=== PATIENT | female | born 1980 | race Caucasian/White ===

== ENCOUNTER 2021-08-04 10:17 | Inpatient (IN) | payer OTHER ==
[~2021-08-04] VITALS: Ht 162.6 cm; Wt 105.7 kg
[~2021-08-04 10:17] MED LIST: MEDROL DOSEPAK 24 MG PO
[2021-08-04 11:12] LABS: HEMOGLOBIN 11.1 gm/dl (12.3-15.3); RED BLOOD COUNT 4.4 M/UL (4.00-5.10); WHITE BLOOD COUNT 21.9 K/UL (4.5-11.0)
[2021-08-04] MEDS ORDERED: AMITRIPTYLINE100 MG PO (13:53)
[2021-08-04] MEDS ORDERED: VOLTAREN EC 7575 MG PO (13:53)
[2021-08-04] MEDS ORDERED: GLIPIZIDE5 MG PO (13:53)
[2021-08-04] MEDS ORDERED: EUTHYROX75 MCG PO (13:54)
[2021-08-04] MEDS ORDERED: MYCOSTATIN100000 UTS PO (13:55)
[2021-08-04] MEDS ORDERED: PROAIR HFA8.5 GM INH (13:55)
[2021-08-04] MEDS ORDERED: HUMALOG MI100 UNIT/3 SC (13:56)
[2021-08-04] MEDS ORDERED: BASAGLAR K100 UNIT/1 SC (14:48)
[2021-08-04] MEDS ORDERED: VITAMIN C 500500 MG PO (14:49)
[2021-08-04] MEDS ORDERED: ZINC50 M3 PO (14:49)
[2021-08-04] MEDS ORDERED: BIOTIN1 MG PO (14:49)
--- NOTE | 2021-08-04 15:04 | NUR ---
Attempted midline catheter placement x 3 times, without success. Dr. Wing notified. Able to access vein each time, but unable to advance catheter.
[2021-08-05 00:40] LABS: ENTEROCOCCUS Not Detected (Negative); KPC-CARBAPENEM-RESISTANCE GENE Not Detected (Negative); STREP AGALACTIAE (GROUP B) Not Detected (Negative); STREPTOCOCCUS Not Detected (Negative); vanA/B (VANCOMYCIN RESIST GENE Not Detected (Negative)
[2021-08-05 00:41] LABS: ACINETOBACTER BAUMANNII Not Detected (Negative); CANDIDA ALBICANS Not Detected (Negative); CANDIDA KRUSEI Not Detected (Negative); CANDIDA TROPICALIS Not Detected (Negative); ESCHERICHIA COLI Not Detected (Negative); HAEMOPHILUS INFLUENZAE Not Detected (Negative); KLEBSIELLA OXYTOCA Not Detected (Negative); KLEBSIELLA PNEUMONIAE Not Detected (Negative); PROTEUS Not Detected (Negative); PSEUDOMONAS AERUGINOSA Not Detected (Negative); SERRATIA MARCESANS Not Detected (Negative); STREP PYOGENES (GROUP A) Not Detected (Negative)
[2021-08-05 02:45] LABS: STAPHYLOCOCCUS DETECTED (Negative); STAPHYLOCOCCUS AUREUS DETECTED (Negative); mecA (METHICILLIN RESIST GENE DETECTED (Negative)
[2021-08-05 05:18] LABS: HEMOGLOBIN 9.9 gm/dl (12.3-15.3); RED BLOOD COUNT 3.95 M/UL (4.00-5.10)
[2021-08-06 03:56] LABS: RED BLOOD COUNT 3.59 M/UL (4.00-5.10); WHITE BLOOD COUNT 17.5 K/UL (4.5-11.0)
[2021-08-07 03:13] LABS: HEMOGLOBIN 9.7 gm/dl (12.3-15.3); RED BLOOD COUNT 3.74 M/UL (4.00-5.10)
[2021-08-07 03:48] LABS: BUN/CREATININE RATIO 47 (0-10)
[2021-08-08 03:54] LABS: HEMOGLOBIN 11.1 gm/dl (12.3-15.3)
[2021-08-08 03:55] LABS: RED BLOOD COUNT 4.29 M/UL (4.00-5.10)
[2021-08-08 04:17] LABS: BUN/CREATININE RATIO 38 (0-10)
[2021-08-09 04:24] LABS: HEMOGLOBIN 11.1 gm/dl (12.3-15.3); RED BLOOD COUNT 4.27 M/UL (4.00-5.10)
[2021-08-09 04:27] LABS: WHITE BLOOD COUNT 26.6 K/UL (4.5-11.0)
[2021-08-09 04:45] LABS: BUN/CREATININE RATIO 31 (0-10)
[2021-08-10 03:42] LABS: HEMOGLOBIN 11.4 gm/dl (12.3-15.3); RED BLOOD COUNT 4.35 M/UL (4.00-5.10)
[2021-08-10 03:58] LABS: WHITE BLOOD COUNT 41.4 K/UL (4.5-11.0)
[2021-08-10 04:03] LABS: BUN/CREATININE RATIO 37 (0-10)
[2021-08-10 10:55] LABS: HEMOGLOBIN 11.7 gm/dl (12.3-15.3); RED BLOOD COUNT 4.48 M/UL (4.00-5.10)
[2021-08-11 04:45] LABS: RED BLOOD COUNT 4.54 M/UL (4.00-5.10)
[2021-08-11 04:56] LABS: WHITE BLOOD COUNT 58.1 K/UL (4.5-11.0)
[2021-08-11 05:09] LABS: BUN/CREATININE RATIO 30 (0-10)
[2021-08-12 04:41] LABS: HEMOGLOBIN 10.3 gm/dl (12.3-15.3)
[2021-08-12 04:43] LABS: RED BLOOD COUNT 3.97 M/UL (4.00-5.10)
[2021-08-12 05:01] LABS: BUN/CREATININE RATIO 30 (0-10)
[2021-08-12 15:26] LABS: WHITE BLOOD COUNT 34.5 K/UL (4.5-11.0)
[2021-08-13 07:44] LABS: HEMOGLOBIN 10.1 gm/dl (12.3-15.3); RED BLOOD COUNT 3.86 M/UL (4.00-5.10)
[2021-08-13 07:51] LABS: WHITE BLOOD COUNT 31.6 K/UL (4.5-11.0)
[2021-08-13 08:06] LABS: BUN/CREATININE RATIO 23 (0-10)
[2021-08-14 09:32] LABS: HEMOGLOBIN 9.5 gm/dl (12.3-15.3); RED BLOOD COUNT 3.6 M/UL (4.00-5.10)
[2021-08-14 09:34] LABS: WHITE BLOOD COUNT 23.4 K/UL (4.5-11.0)
[2021-08-14 09:50] LABS: BUN/CREATININE RATIO 21 (0-10)
[2021-08-15 03:31] LABS: HEMOGLOBIN 8.7 gm/dl (12.3-15.3); RED BLOOD COUNT 3.26 M/UL (4.00-5.10); WHITE BLOOD COUNT 23.1 K/UL (4.5-11.0)
[2021-08-15 04:03] LABS: BUN/CREATININE RATIO 23 (0-10)
--- NOTE | 2021-08-15 19:33 | NUR ---
PATIENT COMPLAINING OF BURNING SENSATION TO UPPER CHEST AREA BILATERALLY. NOTIFIED DR JANSEN. NO ORDERS RECIEVED AT THIS TIME AND HE IS AWARE.
[2021-08-16 03:35] LABS: HEMOGLOBIN 8.5 gm/dl (12.3-15.3); RED BLOOD COUNT 3.21 M/UL (4.00-5.10); WHITE BLOOD COUNT 23.7 K/UL (4.5-11.0)
[2021-08-16 03:54] LABS: BUN/CREATININE RATIO 19 (0-10)
[2021-08-17 03:10] LABS: HEMOGLOBIN 8.1 gm/dl (12.3-15.3); WHITE BLOOD COUNT 20.3 K/UL (4.5-11.0)
[2021-08-17 03:37] LABS: BUN/CREATININE RATIO 18 (0-10)
[2021-08-18 03:36] LABS: HEMOGLOBIN 8.1 gm/dl (12.3-15.3); RED BLOOD COUNT 3.03 M/UL (4.00-5.10); WHITE BLOOD COUNT 19.9 K/UL (4.5-11.0)
[2021-08-18 04:03] LABS: BUN/CREATININE RATIO 16 (0-10)
[2021-08-19 05:33] LABS: HEMOGLOBIN 7.4 gm/dl (12.3-15.3); RED BLOOD COUNT 2.76 M/UL (4.00-5.10); WHITE BLOOD COUNT 18.4 K/UL (4.5-11.0)
[2021-08-19 06:00] LABS: BUN/CREATININE RATIO 15 (0-10)
[2021-08-20 02:54] LABS: HEMOGLOBIN 7.5 gm/dl (12.3-15.3); RED BLOOD COUNT 2.81 M/UL (4.00-5.10); WHITE BLOOD COUNT 17.1 K/UL (4.5-11.0)
[2021-08-20 03:22] LABS: BUN/CREATININE RATIO 13 (0-10)
--- NOTE | 2021-08-20 05:00 | NUR ---
patient refuses to get up and use the bathroom, although she says she has a full bladder. encouraged her several times to get up, but she says she doesn't want to right now.
[2021-08-21 04:25] LABS: BUN/CREATININE RATIO 15 (0-10)
[2021-08-21 11:44] LABS: MONONUCLEAR CELLS 19.9 (75-100); POLYMORPHONUCLEAR % 80.1 (0-25); RBC (AUTOMATED) 885600 (0-100000); WBC (AUTOMATED) 5665 (0-500)
[2021-08-21 12:06] LABS: LDH, BODY FLUID 870 U/L; TOTAL PROTEIN, BODY FLUID 3.7 gm/dL
[2021-08-21 12:41] LABS: HEMOGLOBIN 7.8 gm/dl (12.3-15.3); RED BLOOD COUNT 2.9 M/UL (4.00-5.10); WHITE BLOOD COUNT 19.1 K/UL (4.5-11.0)
[2021-08-22 03:51] LABS: WHITE BLOOD COUNT 14.7 K/UL (4.5-11.0)
[2021-08-22 04:03] LABS: BUN/CREATININE RATIO 16 (0-10)
[2021-08-22 04:09] LABS: RED BLOOD COUNT 2.53 M/UL (4.00-5.10)
[2021-08-22 06:11] LABS: HEMOGLOBIN 6.8 gm/dl (12.3-15.3)
[2021-08-23 07:22] LABS: BUN/CREATININE RATIO 14 (0-10)
[2021-08-23 09:44] LABS: HEMOGLOBIN 8.3 gm/dl (12.3-15.3); WHITE BLOOD COUNT 14.9 K/UL (4.5-11.0)
[2021-08-23 09:53] LABS: RED BLOOD COUNT 3.05 M/UL (4.00-5.10)
--- NOTE | 2021-08-23 18:13 | NUR ---
PT HAS REFUSED TO EAT BREAKFAST, LUNCH, AND DINNER. THE PATIENT HAS ALSO REFUSED A BATH AND LINEN CHANGE. THE PATIENT TURNS HERSELF AND REFUSES HELP WITH TURNS.
[2021-08-24 06:25] LABS: WHITE BLOOD COUNT 15.9 K/UL (4.5-11.0)
[2021-08-24 06:26] LABS: HEMOGLOBIN 10.7 gm/dl (12.3-15.3); RED BLOOD COUNT 3.76 M/UL (4.00-5.10)
[2021-08-24 07:26] LABS: BUN/CREATININE RATIO 17 (0-10)
[2021-08-25 03:59] LABS: HEMOGLOBIN 9.3 gm/dl (12.3-15.3); WHITE BLOOD COUNT 15.2 K/UL (4.5-11.0)
[2021-08-25 04:19] LABS: RED BLOOD COUNT 3.27 M/UL (4.00-5.10)
[2021-08-25 04:20] LABS: BUN/CREATININE RATIO 15 (0-10)
[2021-08-26 03:29] LABS: HEMOGLOBIN 9.4 gm/dl (12.3-15.3); RED BLOOD COUNT 3.36 M/UL (4.00-5.10); WHITE BLOOD COUNT 16.3 K/UL (4.5-11.0)
[2021-08-26 03:47] LABS: BUN/CREATININE RATIO 16 (0-10)
--- NOTE | 2021-08-26 15:37 | NUR ---
PATIENT LEFT FLOOR AT 1400 PER RADIOLOGY STAFF FOR LEFT CHEST TUBE PLACEMENT. RETURNED TO FLOOR AT 1515. TOLERATED PROCEDURE WELL, REMOVED 20CC SEROSANGUINOUS FLUID FROM PLUEREX DRAIN. WILL CONTINUE TO MONITOR
[2021-08-27 02:53] LABS: RED BLOOD COUNT 3.23 M/UL (4.00-5.10); WHITE BLOOD COUNT 14.3 K/UL (4.5-11.0)
[2021-08-27 06:20] LABS: BUN/CREATININE RATIO 14 (0-10)
[2021-08-28 09:13] LABS: RED BLOOD COUNT 3.54 M/UL (4.00-5.10)
[2021-08-28 09:42] LABS: BUN/CREATININE RATIO 13 (0-10)
[2021-08-29 07:59] LABS: HEMOGLOBIN 9.7 gm/dl (12.3-15.3); RED BLOOD COUNT 3.44 M/UL (4.00-5.10); WHITE BLOOD COUNT 18.5 K/UL (4.5-11.0)
[2021-08-29 08:15] LABS: BUN/CREATININE RATIO 15 (0-10)
[2021-08-30 03:31] LABS: HEMOGLOBIN 9.2 gm/dl (12.3-15.3); RED BLOOD COUNT 3.29 M/UL (4.00-5.10)
[2021-08-30 04:00] LABS: BUN/CREATININE RATIO 12 (0-10)
[2021-08-31 08:30] LABS: HEMOGLOBIN 10.2 gm/dl (12.3-15.3); RED BLOOD COUNT 3.62 M/UL (4.00-5.10); WHITE BLOOD COUNT 18.7 K/UL (4.5-11.0)
[2021-08-31 09:07] LABS: BUN/CREATININE RATIO 11 (0-10)
[2021-09-01 09:06] LABS: HEMOGLOBIN 9.3 gm/dl (12.3-15.3); RED BLOOD COUNT 3.31 M/UL (4.00-5.10); WHITE BLOOD COUNT 16.4 K/UL (4.5-11.0)
[2021-09-01 09:27] LABS: BUN/CREATININE RATIO 9 (0-10)
--- NOTE | 2021-09-02 11:45 | NUR ---
DR CABRAL HERE TO REMOVE CHEST TUBE, LEFT CHEST TUBE REMOVED WITHOUT COMPLICATION, RIGHT CHEST TUBE REMAINS AND IS NOW UNCLAMPED.
[2021-09-04 03:09] LABS: HEMOGLOBIN 8.4 gm/dl (12.3-15.3); RED BLOOD COUNT 2.99 M/UL (4.00-5.10); WHITE BLOOD COUNT 14.4 K/UL (4.5-11.0)
[2021-09-04 03:33] LABS: BUN/CREATININE RATIO 9 (0-10)
[2021-09-05 09:36] LABS: HEMOGLOBIN 9.5 gm/dl (12.3-15.3)
[2021-09-05 09:39] LABS: RED BLOOD COUNT 3.43 M/UL (4.00-5.10); WHITE BLOOD COUNT 18.4 K/UL (4.5-11.0)
[2021-09-05 10:01] LABS: BUN/CREATININE RATIO 11 (0-10)
[2021-09-06 08:40] LABS: HEMOGLOBIN 9.3 gm/dl (12.3-15.3); RED BLOOD COUNT 3.31 M/UL (4.00-5.10); WHITE BLOOD COUNT 17.2 K/UL (4.5-11.0)
[2021-09-06 08:47] LABS: BUN/CREATININE RATIO 9 (0-10)
[2021-09-06] MEDS ORDERED: THERAGRAN M TAB1 EA PO (14:52)
[2021-09-06] MEDS ORDERED: LOPRESSOR 25 MG25 MG PO (14:52)
[2021-09-06] MEDS ORDERED: ZYVOX600 MG PO (14:52)
[2021-09-06] MEDS ORDERED: ELIQUIS 5 MG TAB5 MG PO (14:52)
== END 2021-09-06 19:52 | disposition home health service (06) | DRG 871 ==
LOC: ER1 10:17 → CCU 16:42 → CDU 16:42 → PROG CARE 16:42 → CCU 08-11 09:58 → PROG CARE 08-13 13:06 → CCU 08-22 13:45 → PROG CARE 08-24 13:03
PROVIDERS: Emergency Medicine; Internal Medicine; Internal Medicine Infectious Disease; Internal Medicine Pulmonary Disease; Nurse Practitioner Family; Surgery; ADMIT Internal Medicine
PROC: 8E0ZXY6 Isolation (ICD-10-PCS; principal; 2021-08-04)
PROC: 3E0333Z Introduction of Anti-inflammatory into Peripheral Vein, Percutaneous Approach (ICD-10-PCS; 2021-08-04)
PROC: 05HN33Z Insertion of Infusion Device into Left Internal Jugular Vein, Percutaneous Approach (ICD-10-PCS; 2021-08-04)
PROC: XW033H5 Introduction of Tocilizumab into Peripheral Vein, Percutaneous Approach, New Technology Group 5 (ICD-10-PCS; 2021-08-04)
PROC: 0W9B3ZZ Drainage of Left Pleural Cavity, Percutaneous Approach (ICD-10-PCS; 2021-08-11)
PROC: 0W9930Z Drainage of Right Pleural Cavity with Drainage Device, Percutaneous Approach (ICD-10-PCS; 2021-08-11)
PROC: 30233N1 Transfusion of Nonautologous Red Blood Cells into Peripheral Vein, Percutaneous Approach (ICD-10-PCS; 2021-08-22)
DX: A41.89 Other specified sepsis (principal); U07.1 COVID-19; J12.82 Pneumonia due to coronavirus disease 2019; I26.99 Other pulmonary embolism without acute cor pulmonale; J80 Acute respiratory distress syndrome; J15.9 Unspecified bacterial pneumonia; E87.2 Acidosis; N17.9 Acute kidney failure, unspecified; E87.1 Hypo-osmolality and hyponatremia; Z68.41 Body mass index [BMI] 40.0-44.9, adult; B37.0 Candidal stomatitis; J90 Pleural effusion, not elsewhere classified; J93.83 Other pneumothorax; E46 Unspecified protein-calorie malnutrition; I82.403 Acute embolism and thrombosis of unspecified deep veins of lower extremity, bilateral; E03.9 Hypothyroidism, unspecified; E66.9 Obesity, unspecified; J43.9 Emphysema, unspecified; E04.1 Nontoxic single thyroid nodule; H53.8 Other visual disturbances; D64.9 Anemia, unspecified; A41.02 Sepsis due to Methicillin resistant Staphylococcus aureus; R65.20 Severe sepsis without septic shock; E11.65 Type 2 diabetes mellitus with hyperglycemia; R53.83 Other fatigue; Z88.8 Allergy status to other drugs, medicaments and biological substances; Z98.890 Other specified postprocedural states; Z79.4 Long term (current) use of insulin; Z79.899 Other long term (current) drug therapy; Z23 Encounter for immunization
CPT/HCPCS: ECHO; 36415; 36430; 36556; 36600; 70450; 71045; 71046; 71250; 80048; 80053; 80202; 82550; 82728; 82803; 82945; 82947; 82962; 83605; 83615; 83735; 83880; 84100; 84157; 84703; 85014; 85018; 85025; 85362; 85379; 85384; 85610; 85652; 85730; 86140; 86850; 86900; 86901; 86920; 87040; 87070; 87077; 87086; 87150; 87186; 87205; 89051; 93005; 93306; 93970; 94640; 94664; 94760; 96365; 96366; 96375; 96376; 97110-GP-CQ; 97116-GP-CQ; 97161; 97164; 97166; 97530; 97530-GP-CQ; 97535; 99285; C1751; J0692; J1100; J1644; J1650; J1940; J2020; J2185; J2270; J2405; J2543; J2997; J3370; J7030; J7050; J7070; P9016; Q9965; Q9967; U0002

== ENCOUNTER → 2021-12-22 | Outpatient (CLI) | payer OTHER ==
[~2021-12-22] MED LIST changes: +AMITRIPTYLINE100 MG PO; +BASAGLAR K100 UNIT/1 SC; +BIOTIN1 MG PO; +ELIQUIS 5 MG TAB5 MG PO; +EUTHYROX75 MCG PO; +GLIPIZIDE5 MG PO; +HUMALOG MI100 UNIT/3 SC; +LOPRESSOR 25 MG25 MG PO; +MYCOSTATIN100000 UTS PO; +PROAIR HFA8.5 GM INH; +THERAGRAN M TAB1 EA PO; +VITAMIN C 500500 MG PO; +VOLTAREN EC 7575 MG PO; +ZINC50 M3 PO; +ZYVOX600 MG PO
== END ==
LOC: KOH-I 08:50
DX: J94.8 Other specified pleural conditions (principal); R91.8 Other nonspecific abnormal finding of lung field; J98.4 Other disorders of lung
CPT/HCPCS: 71250